=== PATIENT | male | born 1960 | race Caucasian/White ===

== ENCOUNTER 2020-09-13 15:46 | Outpatient (CLI) | payer OTHER, SELFPAY ==
--- NOTE | ~2020-09-13 | XR_ITS ---
EXAMINATION: XR abdomen/kub 1V DATE: 09/13/2020 16:08 INDICATION: Calcium kidney stone. TECHNIQUE: A supine view of the abdomen on 2 radiographs was obtained. COMPARISON: CT abdomen and pelvis 10/17/2018, abdomen radiographs 11/30/2018 FINDINGS: There are phleboliths in the pelvis. There are greater than 10 stones in right kidney measu ring up to 10 mm. There are surgical clips in left upper quadrant. IMPRESSION: 1. Right kidney stones. Reviewed, dictated and finalized at location A. IMPRESSION: 1. Right kidney stones.
--- NOTE | ~2020-09-13 | CT_ITS ---
EXAMINATION: CT abdomen pelvis wo con DATE: 09/13/2020 16:17 INDICATION: Right flank pain. TECHNIQUE: Computed tomography (CT) of the abdomen and pelvis was performed without intravenous contr ast. Automated exposure control and iterative reconstruction technique were employed. The dose-length product was 777.85 mGy-cm. COMPARISON: CT abdomen and pelvis 10/17/2018 FINDINGS: The visualized portions of the lung bases demonstrate mild atelectasis. No pleural effusion . The heart size is normal. No pericardial effusion. There is a moderate-sized sliding hiatal hernia. There are likely changes of fundoplication. There are cysts in the liver measuring up to 13 mm. The gallbladder is normal. 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 The adrenal glands and left kidney are normal. There are greater than 10 stones in right kidney measuring up to 9 mm. N o hydronephrosis. The prostate is severely enlarged. There are no dilated loops of bowel. The appendi x is normal. There is a left inguinal hernia containing fat. There are no pathologically enlarged lym ph nodes. There is no free intraperitoneal fluid. There is a chronic 2.4 cm nonaggressive lytic lesio n in the intertrochanteric region of proximal left femur, likely benign. IMPRESSION: 1. Nonobstructing right kidney stones. 2. Moderate-sized sliding hiatal hernia with likely changes of fundoplication. Reviewed, dictated and finalized at location A.
== END 2020-09-13 15:47 | disposition home or self-care (01) ==
LOC: ANHIMG 15:47
PROVIDERS: PCP Family Medicine; Visit Provider Urology
DX: N20.0 Calculus of kidney (principal); K44.9 Diaphragmatic hernia without obstruction or gangrene
CPT/HCPCS: 74018; 74176

== ENCOUNTER 2021-04-25 11:09 | Outpatient (CLI) | payer OTHER, SELFPAY ==
--- NOTE | ~2021-04-25 | XR_ITS ---
EXAMINATION: XR knee LT 2V DATE: 04/25/2021 11:38 INDICATION: Left knee pain. TECHNIQUE: 2 views of left knee were obtained. COMPARISON: None. FINDINGS: Bone alignment is normal. No fracture. There is mild osteoarthritis of lateral and patellof emoral compartments characterized by tiny marginal osteophytes. No joint space narrowing. There is a moderate-sized knee joint effusion. IMPRESSION: 1. Mild left knee osteoarthritis. 2. Moderate-sized left knee joint effusion. Reviewed, dictated and finalized at location E. ICE CARE CONSULTANT
== END 2021-04-25 11:10 | disposition home or self-care (01) ==
PROVIDERS: PCP Family Medicine; Visit Provider Family Medicine
DX: M17.12 Unilateral primary osteoarthritis, left knee (principal); M25.462 Effusion, left knee
CPT/HCPCS: 73560

== ENCOUNTER 2022-07-02 09:53 | Outpatient (CLI) | payer OTHER, SELFPAY ==
--- NOTE | ~2022-07-02 | NM_ITS ---
EXAMINATION: NM kerri stress w perfusion DATE: 07/02/2022 11:53 INDICATION: Chest pain. Coronary atherosclerosis. TECHNIQUE: Rest images were obtained following intravenous administration of 9.8 mCi Tc99m tetrofosmi n (Myoview). The patient was infused intravenously with Lexiscan (regadenoson). Then, 31.0 mCi Tc99m tetrofosmin (Myoview) was administered intravenously, and stress images were obtained. Data was recon structed into short axis and horizontal and vertical long axis SPECT images. Gated SPECT images were also obtained. COMPARISON: CT abdomen and pelvis 09/13/2020 FINDINGS: There is no definite reversible or fixed perfusion abnormality to suggest ischemia or infar ction. There is no segmental wall motion abnormality. Left ventricular ejection fraction measures 5 7%. IMPRESSION: 1. No definite ischemia or infarct. 2. Normal left ventricular ejection fraction measuring 57%. Reviewed, dictated and finalized at location A.
--- NOTE | 2022-07-02 10:06 | EST_ITS ---
Patient Info Name: Alonso Rodas Age: 61 years : 1960 Gender: Male Ht: 73 in Wt: 260 lbs BSA: 2.50 m2 HR: 74 bpm BP: 139 / 84 mmHg Heart Rhythm: Sinus Rhythm Exam Date: 07/02/2022 10:52 AM Exam Location: [facility] Patient Status: Outpatient Admit Date: 07/02/2022 Staff Ordering Physician: Ed Hoffman MD Attending Provider: Ed Hoffman MD Exercise Technologist: Maribel Salazar CT Exercise Physician: Ryan Miller DO Exam Type: CA stress test treadmill w NM Study Info Indications I25.110 - Atherosclerotic heart disease of [place] coronary artery with unstable angina pectoris A nuclear stress test was performed. Summary 1. 1. Negative Shemar exercise stress test for ischemic ST changes by ECG criteria. 2. 2. Good functional capacity, achieving 9.8 METs of workload. 3. 3. Appropriate HR response to exercise. 4. 4. Appropriate HR recovery at 1 minute post exercise. 5. 5. Hypertensive response to exercise. 6. 6. Nuclear scan to follow and will be reported separately. Please correlate with it. 7. 7. Patient informed of the above results. Protocol: [facility] Stress ECG Details Stage: REST Duration (min): 1 min : 6 sec Speed (mph): 0.0 Grade (%): 0 HR (bpm): 73 SBP (mmHg): 139 DBP (mmHg): 84 METS: --- Stage: REST Duration (min): 13 min : 14 sec Speed (mph): 0.0 Grade (%): 0 HR (bpm): 77 SBP (mmHg): 139 DBP (mmHg): 84 METS: --- Stage: STAGE 1 Duration (min): 1 min : 0 sec Speed (mph): 1.7 Grade (%): 10 HR (bpm): 106 SBP (mmHg): 139 DBP (mmHg): 84 METS: --- Stage: STAGE 1 Duration (min): 2 min : 0 sec Speed (mph): 1.7 Grade (%): 10 HR (bpm): 115 SBP (mmHg): 139 DBP (mmHg): 84 METS: --- Stage: STAGE 1 Duration (min): 3 min : 0 sec Speed (mph): 1.7 Grade (%): 10 HR (bpm): 117 SBP (mmHg): 195 DBP (mmHg): 87 METS: --- Stage: STAGE 2 Duration (min): 1 min : 0 sec Speed (mph): 2.5 Grade (%): 12 HR (bpm): 124 SBP (mmHg): 195 DBP (mmHg): 87 METS: --- Stage: STAGE 2 Duration (min): 2 min : 0 sec Speed (mph): 2.5 Grade (%): 12 HR (bpm): 127 SBP (mmHg): 204 DBP (mmHg): 89 METS: --- Stage: STAGE 2 Duration (min): 3 min : 0 sec Speed (mph): 2.5 Grade (%): 12 HR (bpm): 129 SBP (mmHg): 204 DBP (mmHg): 89 METS: --- Stage: STAGE 3 Duration (min): 1 min : 0 sec Speed (mph): 3.4 Grade (%): 14 HR (bpm): 143 SBP (mmHg): 213 DBP (mmHg): 94 METS: --- Stage: STAGE 3 Duration (min): 1 min : 31 sec Speed (mph): 3.4 Grade (%): 14 HR (bpm): 148 SBP (mmHg): 213 DBP (mmHg): 94 METS: --- Stage: RECOVERY Duration (min): 0 min : 28 sec Speed (mph): 0.0 Grade (%): 0 HR (bpm): 131 SBP (mmHg): 213 DBP (mmHg): 94 METS: --- Stage: RECOVERY Duration (min): 1 mi
== END 2022-07-02 09:54 | disposition home or self-care (01) ==
PROVIDERS: PCP Family Medicine; Visit Provider Family Medicine
DX: I25.119 Atherosclerotic heart disease of native coronary artery with unspecified angina pectoris (principal); R07.9 Chest pain, unspecified
CPT/HCPCS: 78452; 93017; A9502

== ENCOUNTER 2022-10-22 08:15 | Outpatient (RCR) | payer OTHER, SELFPAY | END 2022-12-28 13:20 | disposition home or self-care (01) | LOC: ANHDMC 08:15 | PROVIDERS: PCP Family Medicine; Visit Provider Family Medicine | DX: E11.65 Type 2 diabetes mellitus with hyperglycemia (principal); Z71.89 Other specified counseling | CPT/HCPCS: G0108 ==

== ENCOUNTER 2023-04-26 09:57 | Emergency (ER) | payer OTHER, SELFPAY ==
[2023-04-26] VITALS (7 sets, daily range): BP systolic 142–176; BP diastolic 82–96; PULSE 62–86; RESP 16–20; TEMP 36.6–36.9; O2SAT 95–99
--- NOTE | ~2023-04-26 | CT_ITS ---
EXAMINATION: CTA chest PE protocol DATE: 04/26/2023 12:04 INDICATION: Chest pain. TECHNIQUE: Computed tomography angiography (CTA) of the chest was performed with 100 mL Omnipaque-350 intravenous contrast timed to evaluate the pulmonary arteries. Coronal maximum intensity projection 3D-reconstructions were created by the technologist. Automated exposure control and iterative reconst ruction technique were employed. The dose-length product was 815.80 mGy-cm. COMPARISON: CT abdomen and pelvis 09/13/2020 FINDINGS: There is mild atelectasis bilaterally with a dependent predominance. No pleural effusion. C ardiomegaly is noted. No pericardial effusion. There is a moderate-sized sliding hiatal hernia. There may be changes of fundoplication. There are changes of distal pancreatectomy and splenectomy. There are cysts in the liver measuring up to 12 mm. There is no pulmonary embolus. There is mild chronic an terior wedging of multiple vertebral bodies. There is mild thoracic spondylosis. IMPRESSION: 1. No pulmonary embolus. 2. Moderate-sized sliding hiatal hernia with likely changes of fundoplication. Reviewed, dictated and finalized at location E. R DEVELOPER
--- NOTE | ~2023-04-26 | XR_ITS ---
EXAMINATION: XR chest 2V DATE: 04/26/2023 10:26 INDICATION: Generalized chest pain. TECHNIQUE: Frontal and lateral views of the chest were obtained. COMPARISON: Chest 2 views 06/06/2012 FINDINGS: There is no pneumonia, pleural effusion, or pneumothorax. The heart size is normal. There i s mild chronic anterior wedging of multiple thoracic vertebral bodies. IMPRESSION: 1. No acute cardiopulmonary disease. Reviewed, dictated and finalized at location E. OYEE BENEFITS ADMINISTRATOR
--- NOTE | 2023-04-26 10:00 | ECG_ITS ---
Measurements Intervals [place] Rate: 68 P: 34 [place]: 229 QRS: -28 QRSD: 118 T: 19 QT: 372 QTc: 396 Interpretive Statements SINUS RHYTHM WITH FIRST DEGREE AV BLOCK CONSIDER PREVIOUS iNFERIOR MYOCARDIAL INFARCTION , ABNORMAL ECG COMPARED TO ECG 10/13/2018 14:20:24 NO DIFFERENCE Electronically Signed On 04-26-2023 16:51:17 TRANSPORTATION DRIVER by Alonso Easley M.D.
--- NOTE | 2023-04-26 10:23 | ED.CHESTPAIN ---
HPI - Chest Pain General Chief Complaint: Chest Pain Stated Complaint: CHEST PAIN Time Seen by Provider: 04/26/23 10:04 History of Present Illness HPI narrative: [age] old male presents to the emergency department for evaluation of left-sided chest pain that started last night. Patient states he has been having intermittent left-sided chest pain that is sharp and lasts approximately 30 seconds. Patient states this occurs with both rest and with activity. Patient states between the sharp pains he does have some intermittent aching chest pain. Patient denies any prior history of SD and did have a stress test done here at [facility] June of last year. Patient denies any previous cardiac catheterization. Patient denies any prior history of PE or DVT. Patient does have a history pancreatic cancer with removal part of his pancreas. Patient has since had worsening diabetes. Patient reports of blood sugars have been running higher and patient is going to follow-up with his primary care physician to help get his blood sugars better controlled. Related Data Home Medications Medication Instructions Recorded Confirmed benazepril 5 mg tablet 5 mg PO DAILY 06/12/22 09/14/22 Allergies Allergy/AdvReac Type Severity Reaction Status Date / Time hydrocodone AdvReac Unknown DEPRESSION Verified 04/26/23 10:16 Review of Systems Review of Systems: All systems reviewed & are unremarkable except as noted in HPI and below PMFSH Past Medical History Medical History (Updated 04/26/23 @ 15:49 by Forrest Infante MD) Adenomatous colon polyp Adult BMI 34.0-34.9 kg/sq m BMI 33.0-33.9,adult Coronary artery disease Diabetes mellitus type 2, controlled Diabetes type 2, uncontrolled Essential (primary) hypertension H/O pancreatic cancer Mixed hyperlipidemia Renal stone Urinary frequency Family History Family History Father Malignant neoplasm of prostate Family history of diabetes mellitus in first degree relative Mother Family history of malignant neoplasm of ovary Social History Social History Smoking status: Former smoker Alcohol intake: current Exam Narrative: APPEARANCE: Well appearing, no pain, no distress, well-nourished. HEAD: normocephalic, atraumatic. EYES: PERRLA/EOMI, conjunctivae clear. NOSE: Normal no drainage NECK: Supple. No adenopathy, no masses. RESPIRATORY: Airway patent, respirations nonlabored. Clear to auscultation bilaterally, no rales, rhonchi, wheezing. CARDIOVASCULAR: Regular rate and rhythm without murmurs rubs or gallops. ABDOMINAL: Soft, nontender, nondistended, normal bowel sounds MUSCULOSKELETAL: Moves all extremities. Strength/ROM intact, No edema, No calf tenderness. NEURO: Alert. Cranial nerves II through XII intact. Grossly intact SKIN: Warm, dry. Normal Color Course Course Emergency Course: [age] old male presented the emergency department for evaluation left-sided chest pain. Patient is afebrile with no leukocytosis and a stable hemoglobin. Patient's D-dimer was elevated at 3.51. Patient had negative serial troponins an EKG showed no evidence of acute STEMI. Patient was negative for influenza RSV and for COVID. CTA showed no evidence of pulmonary embolism patient does have a moderate-sized sliding hiatal hernia-which is known to the patient. Patient does describe some gastric reflux and esophagitis issues and this may be 1 of the underlying issues causing his chest pain. Patient was encouraged close follow-up with his primary care physician for additional outpatient cardiac testing. Vital Signs Vital signs: Vital Signs Temperature 98.5 F 04/26/23 10:10 Pulse Rate 81 04/26/23 10:10 Respiratory Rate 16 04/26/23 10:10 Blood Pressure 176/96 H 04/26/23 10:10 Pulse Oximetry 98 04/26/23 10:10 Oxygen Delivery Room Air 04/26/23 10:10 Temperatu
[2023-04-26 11:09] LABS: Basophils Absolute Auto 0.1 K/mm3 (0.0-0.1); Basophils Percent Auto 0.6 % (0.2-1.2); Eosinophils Absolute Auto 0.1 K/mm3 (0-0.3); Eosinophils Percent Auto 1.6 % (0-4.4); Hemoglobin 14.5 g/dL (14.0-18.0); Immature Granulocyte Absolute 0.04 K/mm3 (0.00-0.031); Immature Granulocyte Percent A 0.5 % (0-0.5); Lymphocytes Absolute Auto 3.78 K/mm3 (0.9-3.2); Lymphocytes Percent Auto 46.3 % (18.3-44.2); Mean Corpuscular Hemoglobin 30.7 pg (26-34); Mean Platelet Volume 11.1 fl (7.4-10.4); Monocytes Absolute Auto 0.7 K/mm3 (0.1-0.6); Monocytes Percent Auto 8.9 % (2.6-8.5); Neutrophils Absolute Auto 3.4 K/mm3 (1.3-6.7); Neutrophils Percent Auto 42.1 % (45.5-73.1); Platelet Count Result 267 k/mm3 (150-375); Red Blood Count 4.73 M/mm3 (4.6-6.20); Red Cell Distribution Width 13.2 % (11.5-14.5); White Blood Count 8.2 K/mm3 (4.5-10.0)
[2023-04-26 11:19] LABS: Alanine Aminotransferase 25 U/L (6-50); Albumin Level 4.2 g/dL (3.5-5.1); Alkaline Phosphatase 108 U/L (38-126); Anion Gap 6 mmol/L (8-16); Aspartate Amino Transferase 23 U/L (17-59); Bilirubin,Total 0.8 mg/dL (0.2-1.3); Blood Urea Nitrogen 14 mg/dL (9-20); Calcium 9.4 mg/dL (8.4-10.2); Carbon Dioxide 27 mmol/L (22-30); Chloride 101 mmol/L (98-107); Estimated CRCL calculation 128 ml/min; Estimated Glomerular Filt Rate > 60; Glucose 311 mg/dL (65-110); Lipase 53 U/L (23-300); Sodium 134 mmol/L (137-145)
[2023-04-26 11:28] LABS: INR 1.1; Partial Thromboplastin Time 23.3 SECONDS (22.3-36.8); Prothrombin Time 14.3 Seconds (11.1-14.7)
[2023-04-26 11:30] LABS: Troponin I < 0.012 ng/mL (0.000-0.034)
[2023-04-26 11:35] LABS: D Dimer 3.51 ug/mL (<0.48)
[2023-04-26 11:44] LABS: Influenza A QL RT-PCR Negative (Negative); Influenza B QL RT-PCR Negative (Negative); RSV RNA, RT-PCR Negative (Negative); SARS-CoV-2 RNA PCR Negative (Negative)
[2023-04-26] MEDS: ASPIRIN 81 MG CHEWABLE TABLET 324 MG PO (11:46)
[2023-04-26 14:50] LABS: Troponin I < 0.012 ng/mL (0.000-0.034)
--- NOTE | 2023-04-26 15:18 | ECG_ITS ---
Measurements Intervals [place] Rate: 61 P: 23 [place]: 222 QRS: -24 QRSD: 136 T: 14 QT: 406 QTc: 412 Interpretive Statements SINUS RHYTHM WITH FIRST DEGREE AV BLOCK BORDERLINE LEFT AXIS DEVIATION [QRS AXIS < -20] CONSIDER PREVIOUS INFERIOR WALL INFARCTION ABNORMAL ECG COMPARED TO ECG 04/26/2023 10:04:01 INTRAVENTRICULAR CONDUCTION DELAY NOW PRESENT Electronically Signed On 04-26-2023 17:05:11 CINDER PIT WORKER by Alonso Easley M.D.
== END 2023-04-26 16:02 | disposition home or self-care (01) ==
PROVIDERS: Emergency Provider Emergency Medicine; PCP Family Medicine
DX: R07.9 Chest pain, unspecified (principal); Z20.822 Contact with and (suspected) exposure to COVID-19; E11.9 Type 2 diabetes mellitus without complications; I10 Essential (primary) hypertension; I25.10 Atherosclerotic heart disease of native coronary artery without angina pectoris; E78.2 Mixed hyperlipidemia; Z87.442 Personal history of urinary calculi; Z85.07 Personal history of malignant neoplasm of pancreas; Z90.411 Acquired partial absence of pancreas; Z87.891 Personal history of nicotine dependence; K44.9 Diaphragmatic hernia without obstruction or gangrene; Z79.84 Long term (current) use of oral hypoglycemic drugs; I44.0 Atrioventricular block, first degree; R94.31 Abnormal electrocardiogram [ECG] [EKG]
CPT/HCPCS: 36415; 71046; 71275; 80053; 83690; 84484; 85025; 85380; 85610; 85730; 87637; 93005; 99284; A9270; Q9967

== ENCOUNTER 2024-08-12 17:15 | Emergency (ER) | payer MEDICARE, SELFPAY ==
--- NOTE | 2024-08-12 17:16 | ED_ITS ---
HPI - URI/Sore Throat General Chief Complaint: Upper Respiratory Infection Stated Complaint: Congested/Cough Time Seen by Provider: 08/12/24 17:16 Source: patient Mode of arrival: ambulatory Limitations: no limitations History of Present Illness HPI Narrative: Alonso is a 63-year-old male patient presenting to the clinic today with complaints of cough, sinus pressure, nasal congestion, sore throat, and right ear pain. Reports his symptoms started almost 1 week ago. Right ear pain started last night. MD elicited complaint: sore throat and nasal congestion Related Data Home Medications ?Medication ?Instructions ?Recorded ?Confirmed ?Last Taken ?Type esomeprazole magnesium 20 mg 20 mg PO DAILY 05/05/23 11/15/23 Unknown History capsule,delayed release (Nexium) tirzepatide 15 mg/0.5 mL mg subcut 08/12/24 Unknown History subcutaneous pen injector (Mounjaro) Allergies Allergy/AdvReac Type Severity Reaction Status Date / Time hydrocodone AdvReac Unknown DEPRESSION Verified 08/12/24 17:34 Review of Systems Review of Systems: Pertinent positives per HPI. Patient denies any fever, chills, rash, headache, visual changes, dizziness, cough, shortness of breath, chest pain, palpitations, nausea, vomiting, diarrhea, constipation, abdominal pain, or any urinary issues. PMFSH Past Medical History Medical History Adenomatous colon polyp Adult BMI 34.0-34.9 kg/sq m BMI 33.0-33.9,adult BMI 36.0-36.9,adult Coronary artery disease Diabetes type 2, uncontrolled Essential (primary) hypertension H/O pancreatic cancer Mixed hyperlipidemia Renal stone Urinary frequency Family History Family History Father Malignant neoplasm of prostate Family history of diabetes mellitus in first degree relative Mother Family history of malignant neoplasm of ovary Social History Social History Smoking status: Former smoker Alcohol intake: current Comments At the time of my signature, I reviewed and agree with the nursing past medical, surgical, social, and family history. There is no relevant family history pertinent to the patient complaint. Exam Narrative: General: Well-developed, well nourished, in no apparent distress Head: Normocephalic, atraumatic Eyes: Pupils equally round and reactive to light bilaterally, EOM intact, sclera and conjunctive clear, no discharge, lids normal Ears: Left TMs intact and clear, right TM intact, bulging, red, ear canals clear, no drainage, grossly hearing normal. Nose: Nares patent, clear nasal discharge, moderate inflammation, maxillary and frontal sinus tenderness. Mouth: Oral pharynx red without lesions or masses, good dentition, MMM. Neck: Supple, trachea midline, no enlargement of anterior or posterior cervical nodes, no thyroid masses or goiter palpable. Cardio: Regular rate and rhythm, s1 and s2 normal, no murmur appreciated. Resp: Clear to auscultation bilaterally, no rhonchi, rales, wheezing or rubs Course Course Emergency Course: Portions of this record may have been created with voice recognition software. Level of Care: Express Care Visit Vital Signs Vital signs: Vital Signs Temperature 37.0 C 08/12/24 17:28 Pulse Rate 93 08/12/24 17:28 Respiratory Rate 16 08/12/24 17:28 Blood Pressure 118/75 08/12/24 17:28 Pulse Oximetry 96 08/12/24 17:28 Oxygen Delivery Room Air 08/12/24 17:28 Temperature 37.0 C 08/12/24 17:28 Pulse Rate 93 08/12/24 17:28 Respiratory Rate 16 08/12/24 17:28 Blood Pressure 118/75 08/12/24 17:28 Pulse Oximetry 96 08/12/24 17:28 Oxygen Delivery Room Air 08/12/24 17:28 Vital signs reviewed MDM - URI/Sore Throat MDM Narrative Medical decision making narrative: At the time of visit patient is resting comfortably on the exam table. Patient appears to be nontoxic. Plan: I suspect patient has sinusitis/right otitis media. Prescription for Augmentin, prednisone, and Tessalon Perles. Supportive measures were discussed with the patient and they voiced understanding discharge instructions and agrees to treatment plan. Return precautions reviewed Differential Diagnosis Differential diagnosis: Likely upper respiratory infection, otitis media, sinusitis, viral infection, bronchitis, influenza, pharyngitis and other (COVID) Discharge Plan Discharge Clinical Impression: Acute right otitis media Sinusitis Qualifiers: Sinusitis location: frontal Chronicity: acute Recurrence: non-recurrent Qualified Code(s): J01.10 - Acute frontal sinusitis, unspecified Patient Disposition: Home Condition: Stable Instructions: Antibiotic Form, Ear Infection (ED), Rhinosinusitis (ED) Additional Instructions: Take prescription medications only as prescribed-prednisone, Augmentin, and Tessalon Perles Increase fluids and stay well hydrated Tylenol/motrin for pain/fever Flonase and OTC antihistamines as directed Vicks vapor rub to open sinuses Sinus rinses for congestion Cepacol spray, cough drops, throat lozenges, warm tea with honey/lemon, gargle salt water to soothe throat BRAT diet for diarrhea Clear liquids x 24 hours then advance as tolerated for nausea/vomiting Go to the ED if you develop a worsening in your condition- high fever not controlled by Tylenol or Motrin, dehydration, weakness, lethargy, shortness of breath, or chest pain. Follow up with your PCP in 3-5 days if symptoms persist. Patient Language: French Prescriptions: New prednisone 20 mg tablet 40 mg PO DAILY 5 Days Qty: 10 0RF amoxicillin-pot clavulanate 875-125 mg tablet 1 tablet PO Q12H 10 Days Qty: 20 0RF benzonatate 200 mg capsule 200 mg PO TID 7 Days Qty: 21 0RF No Action Mounjaro 15 mg/0.5 mL pen injector SUBCUT esomeprazole magnesium [Nexium] 20 mg capsule,delayed release(DR/EC) 20 mg PO DAILY insulin glargine [Lantus Solostar U-100 Insulin] 100 unit/mL (3 mL) insulin pen 10 unit subcut QPM Qty: 3 0RF (DME) OneTouch Verio test strips Strip See Rx Instructions .Route Qty: 100 1RF Rx Instructions: Test blood sugar BID (DME) lancets 33 gauge misc See Rx Instructions .Route Qty: 100 1RF Rx Instructions: to use to check glucose BID Jentadueto XR 2.5-1,000 mg tablet, IR - ER, biphasic 24hr 2 tablet PO DAILY Qty: 180 1RF benazepril 5 mg tablet See Rx Instructions .ROUTE .COMPLEX Qty: 90 2RF Dose Instruction: TAKE 1 TABLET BY MOUTH EVERY DAY Rx Instructions: TAKE 1 TABLET BY MOUTH EVERY DAY tamsulosin 0.4 mg capsule See Rx Instructions .ROUTE .COMPLEX Qty: 90 1RF Dose Instruction: TAKE ONE CAPSULE BY MOUTH ONE-HALF HOUR AFTER A MEAL ONCE DAILY Rx Instructions: TAKE ONE CAPSULE BY MOUTH ONE-HALF HOUR AFTER A MEAL ONCE DAILY metoprolol succinate 25 mg tablet extended release 24 hr 25 mg PO DAILY Qty: 90 1RF dapagliflozin propanediol [Farxiga] 10 mg tablet See Rx Instructions .ROUTE .COMPLEX Qty: 90 0RF Dose Instruction: TAKE 1 TABLET BY MOUTH EVERY DAY Rx Instructions: TAKE 1 TABLET BY MOUTH EVERY DAY atorvastatin 40 mg tablet See Rx Instructions .ROUTE .COMPLEX Qty: 90 0RF Dose Instruction: TAKE 1 TABLET BY MOUTH EVERY DAY Rx Instructions: TAKE 1 TABLET BY MOUTH EVERY DAY (DME) pen needle, diabetic 32 gauge x 5/32 needle See Rx Instructions .ROUTE .MEDSUPPLY Qty: 100 0RF Rx Instructions: As directed for with lantus pen Follow-up/Referrals: Ed Hoffman MD [Primary Care Provider] - Time of Disposition: 17:35 Quality NIHSS Nursing Documentation ED NIHSS nursing documentation: reviewed/agree
[2024-08-12 17:28] VITALS: BP 118/75; PULSE 93; RESP 16; TEMP 37; O2SAT 96
== END 2024-08-12 17:42 | disposition home or self-care (01) ==
PROVIDERS: Emergency Provider Nurse Practitioner Family; PCP Family Medicine
DX: H66.91 Otitis media, unspecified, right ear (principal); J01.10 Acute frontal sinusitis, unspecified; Z87.891 Personal history of nicotine dependence; I25.10 Atherosclerotic heart disease of native coronary artery without angina pectoris; E11.9 Type 2 diabetes mellitus without complications; Z85.07 Personal history of malignant neoplasm of pancreas; Z79.85 Long-term (current) use of injectable non-insulin antidiabetic drugs; I10 Essential (primary) hypertension; E78.2 Mixed hyperlipidemia; Z79.4 Long term (current) use of insulin
CPT/HCPCS: 99213; G0463

== ENCOUNTER 2024-10-30 12:14 | Emergency (ER) | payer MEDICARE, SELFPAY ==
[2024-10-30 12:23] VITALS: BP 142/77; PULSE 93; RESP 18; TEMP 36.8; O2SAT 99
--- NOTE | 2024-10-30 12:56 | ED_ITS ---
HPI - Back Pain/Injury General Chief Complaint: Back Pain/Injury Stated Complaint: Back Pain Time Seen by Provider: 10/30/24 12:56 Source: patient, RN notes reviewed and old records reviewed Mode of arrival: ambulatory Limitations: no limitations History of Present Illness HPI Narrative: 64-year-old male presents to the [facility] with complaints of right lower back pain with pain radiating down Right leg. Patient states that he aggravated? his lower back yesterday, was driving down a very rough throat for an hour and a half. Pain is worse with changing of positions. Denies any direct injury Has taken Tylenol. Denies any numbness or tingling in extremities. Denies any loss retention of bowel or bladder. Onset (ago): day(s) (1) Treatments prior to arrival: acetaminophen Related Data Home Medications ?Medication ?Instructions ?Recorded ?Confirmed ?Last Taken ?Type esomeprazole magnesium 20 mg 20 mg PO DAILY 05/05/23 11/15/23 Unknown History capsule,delayed release (Nexium) tirzepatide 15 mg/0.5 mL mg subcut 08/12/24 Unknown History subcutaneous pen injector (Mounjaro) Allergies Allergy/AdvReac Type Severity Reaction Status Date / Time hydrocodone AdvReac Unknown DEPRESSION Verified 08/12/24 17:34 Review of Systems 2 Review of Systems: All systems reviewed & are unremarkable except as noted in HPI and below Constitutional: Constitutional: Reports no additional constitutional complaints Musculoskeletal: Musculoskeletal: Reports as per HPI and Reports back pain Integumentary/Breasts: Skin/Breast: Reports system reviewed and no additional complaints, except as docu PMFSH Past Medical History Medical History Adenomatous colon polyp Adult BMI 34.0-34.9 kg/sq m BMI 33.0-33.9,adult BMI 36.0-36.9,adult Coronary artery disease Diabetes type 2, uncontrolled Essential (primary) hypertension H/O pancreatic cancer Mixed hyperlipidemia Renal stone Urinary frequency Family History Family History Father Malignant neoplasm of prostate Family history of diabetes mellitus in first degree relative Mother Family history of malignant neoplasm of ovary Social History Social History Smoking status: Former smoker Alcohol intake: current Comments At the time of my signature, I reviewed and agree with the nursing past medical, surgical, social, and family history. There is no relevant family history pertinent to the patient complaint. Exam 2 Const: General: cooperative, healthy appearing, comfortable, no acute distress, well developed, alert and well nourished Nutritional Appearance: w ell nourished Orientation/consciousness: patient oriented x3 Limitations: no limitations HENMT: Head: normal to inspection Eyes: General: appearance normal, both eyes and all related structures A lignment and Position: alignment normal Neck: Neck: normal visual inspection, full ROM, no lymphadenopathy and no meningeal signs Chest: Chest palpation & inspection: normal inspection of the chest Resp: Effort & Inspection: normal respiratory effort and able to speak in complete sentences Cardio: Rate: regular rate Back/Spine/Pelvis: Back: no CVA tenderness Cervical Spine: normal cervical lordosis and cervical ROM normal Thoracic/Lumbar Spine: paraspinal muscle tenderness on the right in the lower lumbar, No thoracic spinal tenderness and No lumbar spinal tenderness Pelvis: no pain with anterior-posterior compression, no pain with lateral compression, no unilateral elevation of iliac crest and no sciatic notch tenderness Back/spine/pelvis image: 1. Reports pain, pain was worse this morning, No erythema, ecchymosis, no rashes. Pain is worse with changing positions Skin: General skin exam: normal color and no rashes or lesions noted Neuro: General: patient oriented x3, gait normal, moves all extremities and no meningeal signs Cognition (Neuro): normal cognition Speech: normal speech Gait exam (Neuro): Normal gait present Extrem: General: normal to inspection, full ROM, capillary refill normal and normal gait Psych: Appearance: grossly normal and well kempt Mental Status: mental status grossly normal Speech and movement: Normal speech and movement present and Clear speech present Affect: normal affect Attitude: cooperative Course Course Level of Care: Express Care Visit Vital Signs Vital signs: Vital Signs Temperature 98.2 F 10/30/24 12:23 Pulse Rate 93 10/30/24 12:23 Respiratory Rate 18 10/30/24 12:23 Blood Pressure 142/77 H 10/30/24 12:23 Pulse Oximetry 99 10/30/24 12:23 Oxygen Delivery Room Air 10/30/24 12:23 Temperature 98.2 F 10/30/24 12:23 Pulse Rate 93 10/30/24 12:23 Respiratory Rate 18 10/30/24 12:23 Blood Pressure 142/77 H 10/30/24 12:23 Pulse Oximetry 99 10/30/24 12:23 Oxygen Delivery Room Air 10/30/24 12:23 Reviewed MDM - Back Pain/Injury MDM Narrative Medical decision making narrative: Patient sitting in exam room. Patient is nontoxic, vitals stable. Patient presents with right lower back pain radiating to right leg. Pain is worse with changing of positions. No injury. Patient denies any loss or retention of bowel or bladder. No numbness or tingling in extremities. Patient appropriate for outpatient treatment, will prescribe anti- inflammatories, muscle relaxer and Lidoderm patch Discharge instructions reviewed with patient, as well as provided in writing per nursing staff. The instructions also include specific and strict return/GO TO THE ER as well as f/u information. All questions have been answered, and the patient deny any further questions with discharge and discharge plan. Some parts of this dictation were generated by voice recognition software and may contain typographical and/or grammatical inaccuracies. Differential Diagnosis Differential diagnosis: Likely lumbar radiculopathy, sciatica and strain of lumbar region Critical Care Time Critical Care Time Critical Care Time: No Discharge Plan Discharge Clinical Impression: Strain of lumbar region Qualifiers: Encounter type: initial encounter Qualified Code(s): S39.012A - Strain of muscle, fascia and tendon of lower back, initial encounter Patient Disposition: Home Condition: Stable Instructions: Low Back Strain (ED), Acute Low Back Pain (ED), Lower Back Exercises (ED) Additional Instructions: Take ibuprofen as directed to decrease inflammation and to help pain. Take Baclofen (muscle relaxer) as directed. Do not drink, drive, operate machinery, or do anything dangerous while taking this medication Exercise:Combine aerobic exercise, like walking or swimming, with specific exercises to keep the muscles in your back and abdomen strong and flexible. Proper Lifting:Be sure to lift heavy items with your legs, not your back. Do not bend over to pick something up. Keep your back straight and bend at your knees. Weight:Maintain a healthy weight. Being overweight puts added stress on your lower back. Avoid Smoking:Both the smoke and the nicotine cause your spine to age faster than normal. Proper Posture:Good posture is important for avoiding future problems. A therapist can teach you how to safely stand, sit, and lift. Use warm moist heat to help with pain. Using topical such as Biofreeze, Pérez-Booth or Aspercreme can also help Follow up with Primary provider in 2-3 days, This may become a chronic condition and they will be the one to help manage your pain and order additional testing. Go to the nearest ER if you develop problems with bladder/bowel function, weakness or loss of feeling in one or both of your legs. Patient Language: Romanian Prescriptions: New baclofen 10 mg tablet 10 mg PO TID PRN (Reason: muscle pain) Qty: 15 0RF lidocaine [Lidoderm] 5 % adhesive patch,medicated 1 patch topical DAILY Qty: 15 0RF Rx Instructions: leave on most painful area for up to 12 hrs No Action Mounjaro 15 mg/0.5 mL pen injector SUBCUT esomeprazole magnesium [Nexium] 20 mg capsule,delayed release(DR/EC) 20 mg PO DAILY insulin glargine [Lantus Solostar U-100 Insulin] 100 unit/mL (3 mL) insulin pen 10 unit subcut QPM Qty: 3 0RF (DME) OneTouch Verio test strips Strip See Rx Instructions .Route Qty: 100 1RF Rx Instructions: Test blood sugar BID (DME) lancets 33 gauge misc See Rx Instructions .Route Qty: 100 1RF Rx Instructions: to use to check glucose BID Jentadueto XR 2.5-1,000 mg tablet, IR - ER, biphasic 24hr 2 tablet PO DAILY Qty: 180 1RF (DME) pen needle, diabetic 32 gauge x 5/32 needle See Rx Instructions .ROUTE .MEDSUPPLY Qty: 100 0RF Rx Instructions: As directed for with lantus pen dapagliflozin propanediol [Farxiga] 10 mg tablet See Rx Instructions .ROUTE .COMPLEX Qty: 90 0RF Dose Instruction: TAKE 1 TABLET BY MOUTH EVERY DAY Rx Instructions: TAKE 1 TABLET BY MOUTH EVERY DAY tamsulosin 0.4 mg capsule See Rx Instructions .ROUTE .COMPLEX Qty: 90 1RF Dose Instruction: TAKE ONE CAPSULE BY MOUTH ONE-HALF HOUR AFTER A MEAL ONCE DAILY Rx Instructions: TAKE ONE CAPSULE BY MOUTH ONE-HALF HOUR AFTER A MEAL ONCE DAILY metoprolol succinate 25 mg tablet extended release 24 hr 25 mg PO DAILY Qty: 90 1RF benazepril 5 mg tablet See Rx Instructions .ROUTE .COMPLEX Qty: 90 2RF Dose Instruction: TAKE 1 TABLET BY MOUTH EVERY DAY Rx Instructions: TAKE 1 TABLET BY MOUTH EVERY DAY atorvastatin 40 mg tablet See Rx Instructions .ROUTE .COMPLEX Qty: 90 1RF Dose Instruction: TAKE 1 TABLET BY MOUTH EVERY DAY Rx Instructions: TAKE 1 TABLET BY MOUTH EVERY DAY Follow-up/Referrals: Ed Hoffman MD [Primary Care Provider] - 2 Weeks Stand Alone Forms: Work/School Release IP Time of Disposition: 13:09
== END 2024-10-30 13:13 | disposition home or self-care (01) ==
PROVIDERS: Emergency Provider Nurse Practitioner; PCP Family Medicine
DX: S39.012A Strain of muscle, fascia and tendon of lower back, initial encounter (principal); X58.XXXA Exposure to other specified factors, initial encounter; I25.10 Atherosclerotic heart disease of native coronary artery without angina pectoris; E11.9 Type 2 diabetes mellitus without complications; Z79.85 Long-term (current) use of injectable non-insulin antidiabetic drugs; I10 Essential (primary) hypertension; E78.2 Mixed hyperlipidemia; Z85.07 Personal history of malignant neoplasm of pancreas; Z87.891 Personal history of nicotine dependence
CPT/HCPCS: 99213; G0463

== ENCOUNTER 2024-11-10 09:37 | Outpatient (CLI) | payer MEDICARE, SELFPAY ==
--- OUTSIDE RECORDS SUMMARY | 2024-11-10 09:45 | XMS_ITS ---
Author Organization [facility] Address [address] [place] [address] Care Team Providers Care Tree Specialist Name Role Phone Ed Hoffman MD Primary Care Provider Lisa Kaye MD Unavailable Active Problems Problem Noted Date Diagnosed Date Obesity, Class II, BMI 35-39.9 12/26/2018 Renal stone 11/04/2018 Overview (11/04/2018): right Hypertension 11/04/2018 Hyperlipidemia 11/04/2018 Type 2 diabetes mellitus wit h hyperglycemia, with long-term current use of insulin 11/04/2018 GERD (gastroesophageal reflux disease) 9 Malignant neoplasm of tail of pancreas 6 Current Treatment and Therapy Plans No current plan information found. Past Treatment and Therapy Plans No past plan information found. Lifetime Dose Tracking * Chemical Lifetime Dose Automatic Entry Manual Entr y Fluoro Time 28.613 minutes 28.613 minutes 0 minutes Air kerma at the reference point (Ka,r) 1,195.13 mGy 1 ,195.13 mGy 0 mGy DLP 1,696 mGycm 1,696 mGycm 0 mGycm
--- OUTSIDE RECORDS SUMMARY | 2024-11-10 09:45 | XMS_ITS | Clinical Summary ---
Author Organization [facility] Address [address] [address] Phone Care Team Providers Care Syrup Shed Supervisor Name Role Phone Ed Hoffman MD Primary Care Provider [phone] Medications polyethylene glycol (MIRALAX) Powder Use entire 255g bottle with 64oz of clear liquid as directed for colonoscopy prep. 255 g 0 7 Active Social History Tobacco Use Types Packs/Day Years Used Date Smoking Tobacco: Never Assessed Sex and Gender Information Value Date Recorded Sex Assigned at Not on file Legal Sex Male 10:59 AM CDT Gender Identity Not on file Sexual Orientation Not on file Plan of Treatment Health Maintenance Due Date Last Done Comments Hepatitis C Virus (HCV) Screening 1960 Cologuard 10/12/2003 Colonoscopy 10/12/2003 Colorectal Cancer Screening 10/12/2003 Immunochemical Fecal Occult Blood 10/12/2003 Pneumococcal Immunization (5 0+ years) (1 of 1 - PCV) 2008 Zoster Immunization (1 of 2) 2008 SARS-COV-2 Immunization (3 - 2023- season) 2023 11/04/2020, 10/14/2020 Influenza Immunization (#1) 2024 03/12/2020 Respiratory Syncytial Virus (RSV) Immunization (Adult) (1 - 1-dose 75+ series) 2033 DTaP/Tdap/Td Immunization Discontinued 02/24/2013 TdaP Immunization Completed 02/24/2013 Hepatitis B Immunization Aged Out No longer eligible based on patient's age to complete this topic Human Papillomavirus (HPV) Immunization Aged Out No longer eligible based on patient's age to complete this topic Meningococcal Immunization (ACWY) Aged Out No longer eligible based on patient's age to complete this topic Rotavirus Immunization Aged Out No lo nger eligible based on patient's age to complete this topic Insurance [facility] Care Teams Syrup Shed Supervisor Relationship Specialty Start Date End Date Ed Hoffman MD [address] [place] [address] PCP - General Family Medicine 07/20/16
--- OUTSIDE RECORDS SUMMARY | 2024-11-10 09:45 | XMS_ITS | Clinical Summary ---
Author Organization [facility] Address [address] [place] [address] Care Team Providers Care Office Director Name Role Phone Ed Hoffman MD Primary Care Provider Lisa Kaye MD Unavailable Allergies No known active allergies Medications omeprazole (PriLOSEC) 20 mg capsule Take 1 capsule (20 mg total) by mouth daily as needed Active benazepril (LOTENSIN) 5 mg tablet Take 1 tablet (5 mg total) by mouth daily Active atorvastatin (LIPITOR) 10 mg tablet Take 4 tablets (40 mg total) by mouth daily Active metoprolol XL (TOPROL-XL) 25 mg extended release tablet Take 1 tablet (25 mg total) by mouth daily 4 Active tamsulosin (FLOMAX) 0.4 mg extended release capsule TAKE ONE CAPSULE BY MOUTH ONE-HALF HOUR AFTER A MEAL ONCE DAILY Active pen needle, diabetic (Pen Needle) 31 gauge x 5/16 needleIndicati ons:Type 2 diabetes mellitus without complication, with long-term current use of insulin (HCC) Use to inject 1 time daily as directed 100 each 3 4 Active Dexcom G7 Sensor device 1 device every 10 days 9 each 3 5 Active tirzepatide (Mounjaro) 15 mg/0.5 mL pen injector injection Inject 0.5 mL (15 mg total) under the skin once a week 2 mL 11 5 Active LANTUS 100 unit/mL (3 mL) pen for injectionIndic ations:Type 2 diabetes mellitus without complication, with long-term current use of insulin (HCC) Inject 30 Units under the skin daily 9 mL 11 5 026 Active metFORMIN (GLUCOPHAGE) 1,000 mg tabletIndicati ons:Type 2 diabetes mellitus without complication, with long-term current use of insulin (HCC) TAKE 1 TABLET BY MOUTH TWICE A DAY WITH MEALS 180 tablet 3 5 Active metFORMIN (GLUCOPHAGE) 1,000 mg tabletIndicati ons:Type 2 diabetes mellitus without complication, with long-term current use of insulin (HCC) Take 1 tablet (1,000 mg total) by mouth 2 (two) times a day with meals 60 tablet 11 4 025 Discontinued Active Problems Problem Noted Date Diagnosed Date Obesity, Class II, BMI 35-39.9 12/26/2018 Renal stone 11/04/2018 Overview (11/04/2018): right Hypertension 11/04/2018 Hyperlipidemia 11/04/2018 Type 2 diabetes mellitus wit h hyperglycemia, with long-term current use of insulin 11/04/2018 GERD (gastroesophageal reflux disease) 9 Malignant neoplasm of tail of pancreas 6 Encounters Date Type Department Care Team Description 09/14/2024 2:00 PM CDT Office Visit [facility] Medicine Endocrinology Metabolism and Lipid [address] [facility] [address] [place] [address] [place] [address] Juana Nguyen, HASHER MACHINE OPERATOR Type 2 diabetes mellitus with hyperglycemia, with long-term current use of insulin (HCC) (Primary Dx); Mixed hyperlipidemia; Type 2 diabetes mellitus without complication, with long-term current use of insulin (HCC) from Last 3 Months Immunizations Immunization Administration Dates Next Due Influenza, Quadrivalent, Spl it, Preservative Free, Intramuscular 12/22/2018 Surgical History Surgery Date Site/Laterality Comments PANCREATICODUODENECTOMY LAPAROSCOPIC DISTAL PANCREATECTOMY 016 - 03/21/2016 LAPAROSCOPIC SPLENECTOMY 03/22/2015 - 03/21/2016 [place] FUNDOPLICATION 03/22/1999 - 03/21/2000 LITHOTRIPSY 03/22/2018 - 03/21/20192018 SINUS SURGERY 03/22/1993 - 03/21/1994 CYSTOSCOPY INSERTION / REMOV AL STENT / STONE 03/22/2018 - 03/21/2019 PERCUTANEOUS NEPHROSTOMY PCN RIGHT 12/22/2018 Right Medical History Medical History Date Comments Hypertension 11/04/2018 Hyperlipidemia 11/04/2018 Type 2 diabetes mellitus 11/04/2018 GERD (gastroesophageal reflux disease) 11/04/2018 Sleep apnea Family History Medical History Relation Name Comments Prostate cancer Father Family histo ry of malignant neoplasm of prostate - (Added by TW Conv) Ovarian cancer Mother Ovarian cance r - (Added by TW Conv) Relation Name Status Comments Father Mother Social History Tobacco Use Types Packs/Day Years Used Date Smoking Tobacco: Never Smokeless Tobacco: Never Tobacco Cessation:Counseling Given: Not Answered Alcohol Use Standard Drinks/Week Comments Yes 8 (1 standard drink = 0.6 oz pur e alcohol) AUDIT-C Answer Date Recorded Frequency of Alcohol Consumption 2-4 times a wed12/22/2018 Average Number of Drinks 3 or 4 019 Frequency of Binge Drinking Less than monthly Sex and Gender Information Value Date Recorded Sex Assigned at Not on file Legal 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 Gender Identity Not on file Sexual Orientation Not on file Obstetrics History Last Filed Vital Signs Vital Sign Reading Time Taken Comments Blood Pressure 109/55 09/14/2024 1:54 PM CDT Pulse 83 09/14/2024 1:54 PM CDT Temperature 36.9 C (98.5 F) 09/14/2024 1:54 PM CDT Respiratory Rate 16 12/26/2018 8:24 AM CDT Oxygen Saturation 98% 12/26/2018 8:24 AM CDT Inhaled Oxygen Concentration - - Weight 124.3 kg (274 lb) 09/14/2024 1:54 PM CDT Height 188 cm (6' 2) 09/14/2024 1:54 PM CDT Body Mass Index 35.18 09/14/2024 1:54 PM CDT Plan of Treatment Health Maintenance Due Date Last Done Comments Colon Cancer Screening-Colonoscopy 1958 Depression Screening 1958 Fall Risk Assessment 1958 Hepatitis C Screening 1958 Prostate Cancer Screening-PSA 1958 Dilated Eye Exam 1958 Foot Exam 1958 Hepatitis B Screening 1976 Zoster Vaccine (1 of 2) 2008 Pneumococcal vaccine 65+ (3 of 3 - PCV20 or PCV21) 05/21/2020 05/22/2015, 05/22/2015 DTaP/Tdap/Td Vaccine (2 - Td or Tdap) 02/24/2023 02/24/2013 Well Visit 65+ 10/12/2023 Influenza Vaccine (#1) 2024 9, 05/18/2015, 02/24/2013 Albumin Creatinine Ratio, Urine 02/07/2025 Lipid Panel 02/07/2025 02/08/2024, 05/18/2015 eGFR 02/07/2025 02/08/2024, 1009/2018, 12/25/2018, Additional history exists Hemoglobin A1C 03/16/2025 09/14/2024, 04/23, 02/08/2024, Additional history exists Medical Devices Implanted Type Area Supercharger Mechanic Device Identifier Shelf Expiration Date Model / Serial / Lot [employer] Apple 180-235 Contour 7fr 30cm Taper Tip Bladder Thiago Low Profile Large Inner Latex Free - Snone - [id number] Implanted:Qty: 1 on 12/24/2018 by Lisa Kaye MD at [facility] Stent Right: Ureter [employer] Apple 05/16/2021 180-235 / NONE / [id number] Procedures Procedure Name Priority Date/Time Associated Diagnosis Comments POCT HEMOGLOBIN A1C Routine 09/14/2024 1:59 PM CDT Type 2 diabetes mellitus with hyperglycemia, with long-term current use of insulin (HCC) POCT GLUCOSE 51131 Routine 09/14/2024 1: 59 PM CDT Type 2 diabetes mellitus with hyperglycemia, with long-term current use of insulin (HCC) EGFR Routine 02/08/2024 3:29 PM CAMP DIRECTOR Type 2 diabetes mellitus without complication, with long-term current use of insulin (HCC) LIPID PANEL Routine 02/08/2024 3:29 PM CAMP DIRECTOR Type 2 diabetes mellitus without complication, with long-term current use of insulin (HCC) ALBUMIN CREATININE RATIO, URINE Routine 02/08/2024 3:29 PM CAMP DIRECTOR Type 2 diabetes mellitus without complication, with long-term current use of insulin (HCC) from Last 3 Months or Most Recently Relevant to Health Maintenance Results * POCT glucose (09/14/2024 1:59 PM CDT) Glucose Blood, POC 70 Normal Fasting 70 - 100, Random <200 mg/dL Blood 09/14/2024 1:59 PM CDT us Juana Nguyen HASHER MACHINE OPERATOR POINT OF CARE TEST ORDERA BLES Final Result * (ABNORMAL) POCT hemoglobin A1c (09/14/2024 1:59 PM CDT) Hemoglobin A1C, POC 5.7(A) 4.0 - 5.6 % Blood 09/14/2024 1:59 PM CDT us Juana Nguyen NP POINT OF CARE TEST ORDERA BLES Final Result * eGFR (02/08/2024 3:29 PM CAMP DIRECTOR) eGFR >90 >=60 mL/min/1. 73 m2 Comment: Interpretive Data Reference Interval Normal >/= 90 mL/min/1.73m2 Mildly decreased* 60 - 89 mL/min/1.73m2 Mildly to moderately decreased 45 - 59 mL/min/1.73m2 Moderately to severely decreased 30 - 44 mL/min/1.73m2 Severely decreased 15 - 29 mL/min/1.73m2 Kidney Failure < 15 mL/min/1.73m2 *Relative to young adult level Estimated glomerular filtration rate is determined by the 2020 CKD-EPI equation recommended by the National Kidney Foundation (A Unifying Approach to GFR Estimation: Recommendations of the NKF-ASK Task Force on Reassessing the Inclusion of Race in Diagnosing Kidney Disease, JASN 2020). The CKD-EPI equation should not be used for patients with unstable renal function and has not been validated in children and those over 70. Current interpretive data was last reviewed 2021. Blood 02/08/2024 3:29 PM CAMP DIRECTOR 02/08/2024 3:51 PM CAMP DIRECTOR Lora Conway MD LAB BLOOD ORDERABLES Final Re sult Performing Organization Address [facility] de Phone Number [facility] [place] [address] * Albumin Creatinine Ratio, Urine (02/08/2024 3:29 PM CAMP DIRECTOR) Albumin Ur <12.0 mg/L Comment: Interpretive Data No reference range established. Current interpretive data was last revised 2018. Creatinine Ur 82.2 mg/dL [facility] Comment: Interpretive Data No reference range established. Current interpretive data was last revised 2018. Albumin Creatinine Ratio, Ur <15 1 - 29 mg/g [facility] Urine 02/08/2024 3:29 PM CAMP DIRECTOR 02/08/2024 3:44 PM CAMP DIRECTOR Lora Conway MD LAB URINE ORDERABLES Final Re sult Performing Organization Address [facility] de Phone Number [facility] [place] [address] * Lipid panel (02/08/2024 3:29 PM CAMP DIRECTOR) Cholesterol 150 30 - 199 mg/dL Comment: Interpretive Data Ages < or = 19 years Acceptable: <170 mg/dL Borderline high: 170-199 mg/dL High: >or= 200 mg/dL Ages > or = 20 years Desirable: <200 mg/dL Borderline high: 200-239 mg/dL High: >or= 240 mg/dL Literature References: 1. Expert Panel on Integrated Guidelines for Cardiovascular Health and Risk Reduction in Children and Adolescents. Pediatrics 2011;128:S213 2. NCEP Expert Panel. Circulation 2004;110:227 Current Interpretive Data was last revised on 2017. Triglycerides 110 <=149 mg/dL [facility] Comment: Interpretive Data Ages < or = 9 years Acceptable: <75 mg/dL Borderline high: 75-99 mg/dL High: >or= 100 mg/dL Ages 10 to 20 years Acceptable: <90 mg/dL Borderline high: 90-129 mg/dL High: >or= 130 mg/dL Ages > or = 20 years Desirable: <150 mg/dL Borderline high: 150-199 mg/dL High: 200-499 mg/dL Very high: >or= 499 mg/dL Literature References: 1. Expert Panel on Integrated Guidelines for Cardiovascular Health and Risk Reduction in Children and Adolescents. Pediatrics 2011;128:S213 2. NCEP Expert Panel. Circulation 2004;110:227 Current Interpretive Data was last revised on 2017. HDL 51 >=40 mg/dL [facility] Comment: Interpretive Data Ages < or = 19 years Acceptable: >45 mg/dL Borderline low: 40-45 mg/dL Low: <40 mg/dL Ages > or = 20 years Desirable: >or= 60 mg/dL Low: <40 mg/dL Literature References: 1. Expert Panel on Integrated Guidelines for Cardiovascular Health and Risk Reduction in Children and Adolescents. Pediatrics 2011;128:S213 2. NCEP Expert Panel. Circulation 2004;110:227 Current Interpretive Data was last revised on 2017. LDL, calculated 79 <=129 mg/dL [facility] Comment: Interpretive Data Ages < or = 19 years Acceptable: <110 mg/dL Borderline high: 110-129 mg/dL High: >or= 130 mg/dL Ages > or = 20 years Optimal: <100 mg/dL Near optimal: 100-129 mg/dL Borderline high: 130-159 mg/dL High: >160 mg/dL Calculated using the Duval LDL-C estimating equation. This equation was implemented on 2023. Prior to this date LDL-C was estimated using the Friedewald equation. Literature References: 1. Expert Panel on Integrated Guidelines for Cardiovascular Health and Risk Reduction in Children and Adolescents. Pediatrics 2011;128:S213 2. NCEP Expert Panel. Circulation 2004;110:227 3. Mukund M et al. JANN Cardiol. 2020 July 20;5(5):540-548. doi: 10.1001/jamacardio.2020.0013 Current Interpretive Data was last revised on 2023. Non-HDL Cholesterol 99 mg/dL [facility] Comment: Interpretive Data Ages < or = 19 years Acceptable: <120 mg/dL Borderline high: 120-144 mg/dL High: >145 mg/dL Ages > or = 20 years When triglycerides are >200 mg/dL, Non-HDL cholesterol is a secondary target of therapy with treatment goals that are 30 mg/dL greater than the LDL cholesterol target. Literature References: 1. Expert Panel on Integrated Guidelines for Cardiovascular Health and Risk Reduction in Children and Adolescents. Pediatrics 2011;128:S213 2. NCEP Expert Panel. Circulation 2004;110:227 Current Interpretive Data was last revised on 2017. Chol/HDL ratio 3 [facility] Blood 02/08/2024 3:29 PM CAMP DIRECTOR 02/08/2024 3:44 PM CAMP DIRECTOR us Lora Conway MD LAB BLOOD ORDERABLES Final Re sult [facility] Organization Address City/State/ZIP Co de Phone Number [facility] [place] [address] from Last 3 Months or Most Recently Relevant to Health Maintenance Insurance [facility] Member Subscriber Plan / Payer (Ef fective 2018-Present) Name:Alonso Rodas Relation to Subscriber:Self Name:ALONSO RODAS Payer ID:[id number] (NAIC) Type:[facility] Address: [address] ACCESS [employer] MEDICARE GOLD Advance Directives For more information, please contact: [phone] * Full Code (Latest Code Status on File) Date Activated Date Inactivated Comments 12/22/2018 6:56 PM 12/26/2018 3:54 PM Care Teams Office Director Relationship Specialty Start Date End Date Ed Hoffman MD PCP - General 05/06/16 Lisa Kaye MD Consulting Physician Urology 12/26/18
--- NOTE | 2024-11-21 12:23 | WPDHOLTEREM ---
Holter/Event Monitor Holter/Event Monitor Date of procedure: 11/10/24 Holter/Event Procedure: 3-7 Day Holter Monitor Indications: Cardiac arrhythmia Conclusion: 1. 3 days holter monitor on 11/10/24. 2. Predominant rhythm is sinus rhythm. HR range 44-141 bpm; average HR 85 bpm. HR at 44 bpm was on 11/13/24 at 9:42 am. Hr at 141 bpm was on 11/11/24 at 2:47 pm. 3. There are rare premature supraventricular complexes, rare supraventricular couplets, and rare supraventricular triplets. There are 2 episodes of supraventricular tachycardia with fastest at 125 bpm and longest lasting 4 beats. 4. There are occasional premature ventricular complexes and rare ventricular couplets, longest ventricular bigeminy lasted 1 minute and 59 seconds, and longest ventricular trigeminy lasted 18.9 seconds. No ventricular tachycardia. 5. No significant pauses greater than 3 seconds. 6. Patient reports 1 episode of symptom of chest pain which demonstrates sinus tachycardia at 111 bpm with PVC's.
== END 2024-11-10 09:38 | disposition home or self-care (01) ==
PROVIDERS: PCP Family Medicine; Visit Provider Physician Assistant Medical
DX: I49.9 Cardiac arrhythmia, unspecified (principal)
CPT/HCPCS: 93242